=== PATIENT | male | born 1960 | race Caucasian/White ===

== ENCOUNTER 2019-03-12 22:00 | Emergency (ER) | payer OTHER ==
[2019-03-12 22:12] VITALS: BP 145/83; PULSE 64; RESP 18; TEMP 97.9
[2019-03-12] MEDS ORDERED: HYDROmorphone 1 MG/ML 1 ML SYRINGE IVP STA (22:17)
[2019-03-12] MEDS ORDERED: SODIUM CHLORIDE 0.9% 1,000 ML IV STA (22:17)
[2019-03-12] MEDS ORDERED: ONDANSETRON 4 MG/2 ML VIAL IVP STA (22:20)
[2019-03-12 22:53] LABS: Basophils # (A) 0.1 k/uL (0-0.2); Basophils % (A) 1 %; Eosinophils # (A) 0.2 k/uL (0-0.7); Eosinophils % (A) 3 %; HCT 46.6 % (39.0-53.0); HGB 16.1 gm/dL (13.0-17.5); Lymphocytes # (A) 1.1 k/uL (1.0-4.8); Lymphocytes % (A) 13 %; MCH 32.6 pg (25.0-35.0); MCHC 34.5 g/dL (31.0-37.0); MCV 94.3 fL (80.0-100.0); Mean Platelet Volume 6.1; Monocytes # (A) 0.4 k/uL (0-1.0); Monocytes % (A) 5 %; Neutrophils # (A) 6.1 k/uL (1.3-7.7); Neutrophils % (A) 76 %; Platelet Count 265 k/uL (150-450); RBC 4.94 m/uL (4.30-5.90); RDW 12.6 % (11.5-15.5); WBC 8.1 k/uL (3.8-10.6)
[2019-03-12 23:00] LABS: Total Bilirubin 0.8 mg/dL (0.2-1.3); Total Protein 7.1 g/dL (6.3-8.2)
[2019-03-12 23:01] LABS: Potassium 4.6 mmol/L (3.5-5.1)
--- NOTE | 2019-03-12 23:09 | CT ---
EXAMINATION TYPE: CT abdomen pelvis wo con DATE OF EXAM: 03/12/2019 COMPARISON: None HISTORY: right flank pain CT DLP: 1288 mGycm Automated exposure control for dose reduction was used. TECHNIQUE: Helical acquisition of images was performed from the lung bases through the pelvis. FINDINGS: There is mild subsegmental atelectasis at the left lung base. Heart is top normal in size. There is n o pleural effusion. There is no pericardial effusion. Liver is intact. Gallbladder appears normal. Bile ducts are not dilated. Stomach appears normal. Ther e is tiny calcified splenic granuloma. There is no evidence of pancreatic mass. Pancreas appears norm al. There are left side multiple renal parapelvic cysts. Left ureter is not dilated. There is fat stranding around the right kidney with hydronephrosis. There is no significant dilation of the right ureter but there is a 3 mm calculus in the distal right ureter on image 138. Bladder dis tends smoothly. There is prostatic calcification. There is no inguinal hernia. There is no free fluid in the pelvis. Appendix appears normal. There is no mesenteric edema. There is no ascites or free air. There is no sign of a bowel obstruction. Lumbar spine is intact. Bony pelvis appears intact. There is a right hip nailing.. IMPRESSION: THERE IS RIGHT-SIDED HYDRONEPHROSIS AND OBSTRUCTING SMALL CALCULUS DISTAL RIGHT URETER. LEFT RENAL PARAPELVIC CYSTS. NORMAL APPENDIX.
[2019-03-12] MEDS ORDERED: TAMSULOSIN 0.4 MG CAP.ER.24H PO STA (23:49)
[2019-03-12 23:50] LABS: Appearance,Urine Clear (Clear); Bilirubin,Urine Negative (Negative); Blood,Urine Moderate (Negative); Budding Yeast,Urine Occasional /hpf; Color,Urine Yellow; Glucose,Urine (UA) Negative (Negative); Ketones,Urine Trace (Negative); Leukocyte Esterase,Urine Negative (Negative); Mucus,Urine Few /hpf; Nitrite,Urine Negative (Negative); PH, Urine 6.5 (5.0-8.0); Protein,Urine Trace (Negative); RBC,Urine 172 /hpf (0-5); Specific Gravity,Urine 1.011 (1.001-1.035); Urobilinogen,Urine <2.0 mg/dL (<2.0); WBC,Urine 2 /hpf (0-5)
--- NOTE | 2019-03-12 23:56 | ED ---
General Adult HPI - General Chief complaint: Abdominal Pain Stated complaint: Kidney stones Time Seen by Provider: 03/12/19 22:13 Source: patient, RN notes reviewed, old records reviewed Mode of arrival: ambulatory Limitations: no limitations - History of Present Illness Initial comments: 58-year-old male patient presents in ED wit [facility] complaint of right lower flank pain. Patient reports a history of kidney stones. Reports that feels identical to kidney stones in the past. Denies any other complaints. Reports that this pain began approximately 4 PM. Reports some nausea without emesis. Systemic: Pt denies fatigue, fever/chills, rash. Pt denies weakness, night sweats, weight loss. Neuro: Pt denies headache, visual disturbances, syncope or pre-syncope. HEENT: Pt denies ocular discharge or irritation, otalgia, rhinorrhea, pharyngitis or notable lymphadenopathy. Cardiopulmonary: Pt denies chest pain, SOB, heart palpitations, dyspnea on ex ertion. Abdominal/GI: Pt denies abdominal pain, n/v/d. : Pt denies dysuria, burning w/ urination, frequency/urgency. Denies new onset urinary or bowel incontinence. MSK: Pt denies myalgia, loss of strength or function in extremities. Neuro: Pt denies new onset weakness, paresthesias. - Related Data Previous Rx's Medication Instructions Recorded Tamsulosin [Flomax] 0.4 mg PO DAILY #10 cap 03/12/19 Allergies Allergy/AdvReac Type Severity Reaction Status Date / Time No Known Allergies Allergy Verified 03/12/19 22:40 Review of Systems ROS Statement: Those systems with pertinent positive or pertinent negative responses have been documented in the HPI. ROS Other: All systems not noted in ROS Statement are negative. Past Medical History Additional Past Medical History / Comment(s): kidney stones History of Any Multi-Drug Resistant Organisms: None Reported Past Surgical History: Orthopedic Surgery Past Psychological History: No Psychological Hx Reported Smoking Status: Never smoker Past Alcohol Use History: None Reported Past Drug Use History: None Reported General Exam - General Exam Comments Initial Comments: Constitutional: NAD, AOX3, Pt has pleasant affect. HEENT: NC/AT, trachea midline, neck supple, no lymphadenopathy. Posterior pharynx non erythematous, without exudates. External ears appear normal, without discharge. Mucous membranes moist. Eyes PERRLA, EOM intact. There is no scleral icterus. No pallor noted. Cardiopulmonary: RRR, no murmurs, rubs or gallops, no JVD noted. Lungs CTAB in anterior and posterior breaux. No peripheral edema. Abdominal exam: Abdomen soft and non-distended. Abdomen non-tender to palpation in all 4 quadrants. CVA tenderness negative. Bowel sounds active in LLQ. No hepatosplenomegaly. No ecchymosis Neuro: CN II-XII grossly intact. No nuchal rigidity. No raccon eyes, no valenzuela sign, no hemotympanum. No cervical spinal tenderness. MSK: No posterior calf tenderness bilaterally, homans sign negative bilaterally. Posterior tibialis and radial pulse +2 bilaterally. Sensation intact in upper and lower extremities. Full active ROM in upper and lower extremities, 5/5 stregnth. Limitations: no limitations Course Vital Signs 03/12/19 22:09 Temperature 97.9 F Pulse Rate 64 Respiratory 18 Rate Blood Pressure 145/83 O2 Sat by Pulse 96 Oximetry Medical Decision Making - Medical Decision Making 58-year-old male patient presents to ED chief complaint of right flank pain feels similar to kidney stones in the past. Patient will signs are stable, afebrile. Physical exam did not display acute pathology. After resolution patient pain medication was ordered. Patient reports though that the pain resolved spontaneously. Feels like he passed a kidney stone. CT abdomen and pelvis without contrast displayed right-sided hydronephrosis and obstructing small calculus distal right ureter. EDC CMP was non-impressive with exception of mild elevated lipase. UA displayed blood. Patient denies to feel much improved. Will be discharged with Flomax, urology follow-up and return precautions. Case discussed with Dr. Cabrera. - Lab Data Result diagrams: 03/12/19 22:41 03/12/19 22:41 Lab Results 03/12/19 03/12/19 03/12/19 Range/Units 22:41 22:41 22:41 WBC 8.1 (3.8-10.6) k/uL RBC 4.94 (4.30-5.90) m/uL Hgb 16.1 (13.0-17.5) gm/dL Hct 46.6 (39.0-53.0) % MCV 94.3 (80.0-100.0) fL MCH 32.6 (25.0-35.0) pg MCHC 34.5 (31.0-37.0) g/dL RDW 12.6 (11.5-15.5) % Plt Count 265 (150-450) k/uL Neutrophils % 76 % Lymphocytes % 13 % Monocytes % 5 % Eosinophils % 3 % Basophils % 1 % Neutrophils # 6.1 (1.3-7.7) k/uL Lymphocytes # 1.1 (1.0-4.8) k/uL Monocytes # 0.4 (0-1.0) k/uL Eosinophils # 0.2 (0-0.7) k/uL Basophils # 0.1 (0-0.2) k/uL Sodium 139 (137-145) mmol/L Potassium 4.6 (3.5-5.1) mmol/L Chloride 108 H (98-107) mmol/L Carbon Dioxide 24 (22-30) mmol/L Anion Gap 7 mmol/L BUN 24 H (9-20) mg/dL Creatinine 1.21 (0.66-1.25) mg/dL Est GFR (CKD-EPI)AfAm 77 (>60 ml/min/1.73 sqM) Est GFR (CKD-EPI)NonAf 66 (>60 ml/min/1.73 sqM) Glucose 136 H (74-99) mg/dL Plasma Lactic Acid Storm 1.4 (0.7-2.0) mmol/L Calcium 9.0 (8.4-10.2) mg/dL Total Bilirubin 0.8 (0.2-1.3) mg/dL AST 42 (17-59) U/L ALT 41 (21-72) U/L Alkaline Phosphatase 74 (38-126) U/L Total Protein 7.1 (6.3-8.2) g/dL Albumin 4.0 (3.5-5.0) g/dL Lipase 642 H (23-300) U/L Disposition Clinical Impression: Ureteral calculi Disposition: HOME SELF-CARE Condition: Stable Instructions (If sedation given, give patient instructions): Kidney Stones (ED) Additional Instructions: Patient to adhere to previously discussed treatment plan and will take medication(s) as directed. Patient to follow up with PCP in 1-2 days. Patient to return to ED if symptoms do not improve. Have Lipase redrawn by primary care provider. Follow up with urologist tomorrow. Take medication as directed. Return to ER if condition worsens. Prescriptions: Tamsulosin [Flomax] 0.4 mg PO DAILY #10 cap Is patient prescribed a controlled substance at d/c from ED?: No Referrals: Jose Jacinto DO [Primary Care Provider] - 1-2 days Jose Velazquez MD [STAFF PHYSICIAN] - 1-2 days
[2019-03-13] MEDS ORDERED: ACET/COD 300 MG/30 MG STARTER PACK 6 TAB BTL PO STA (00:01)
[2019-03-13] MEDS ORDERED: ONDANSETRON 4 MG ODT STARTER PACK 2 TAB BTL PO STA (00:01)
== END 2019-03-13 00:14 | disposition home or self-care (01) ==
LOC: EC 22:00
DX: N13.2 Hydronephrosis with renal and ureteral calculous obstruction (principal); R74.8 Abnormal levels of other serum enzymes; Z53.20 Procedure and treatment not carried out because of patient's decision for unspecified reasons
CPT/HCPCS: 36415; 80053; 83605; 83690; 85025; 81001; 74176; 99284; 96360; S0119

== ENCOUNTER 2019-03-24 12:58 | Emergency (ER) | payer OTHER ==
[2019-03-24 13:17] VITALS: RESP 18
[2019-03-24] MEDS ORDERED: KETOROLAC 30 MG/ML 1 ML VIAL IVP STA (13:43)
[2019-03-24] MEDS ORDERED: SODIUM CHLORIDE 0.9% 1,000 ML IV STA (13:43)
[2019-03-24] MEDS ORDERED: ONDANSETRON 4 MG/2 ML VIAL IVP STA (13:43)
[2019-03-24 13:59] LABS: Basophils # (A) 0.2 k/uL (0-0.2); Basophils % (A) 2 %; Eosinophils # (A) 0.3 k/uL (0-0.7); Eosinophils % (A) 3 %; HCT 50.5 % (39.0-53.0); HGB 17.1 gm/dL (13.0-17.5); Lymphocytes # (A) 1.3 k/uL (1.0-4.8); Lymphocytes % (A) 13 %; MCH 32.8 pg (25.0-35.0); MCHC 33.9 g/dL (31.0-37.0); MCV 96.7 fL (80.0-100.0); Mean Platelet Volume 6.8; Monocytes # (A) 0.7 k/uL (0-1.0); Monocytes % (A) 7 %; Neutrophils # (A) 7.2 k/uL (1.3-7.7); Neutrophils % (A) 74 %; Platelet Count 265 k/uL (150-450); RBC 5.23 m/uL (4.30-5.90); RDW 12.6 % (11.5-15.5); WBC 9.6 k/uL (3.8-10.6)
--- NOTE | 2019-03-24 14:03 | XR ---
EXAMINATION TYPE: XR KUB DATE OF EXAM: 03/24/2019 COMPARISON: NONE HISTORY: Right-sided flank pain TECHNIQUE: One view abdominal series FINDINGS: The osseous structures are intact. The bowel gas pattern is nonspecific. Linear changes at the left lung base. Hypertrophic changes spine. Postsurgical change right hip. No suspicious calcifications. IMPRESSION: 1. Nonspecific abdomen with no obstruction. 2. Left basilar atelectasis.
[2019-03-24 14:08] LABS: Albumin 4.3 g/dL (3.5-5.0); Calcium 9.2 mg/dL (8.4-10.2); Total Bilirubin 0.7 mg/dL (0.2-1.3); Total Protein 7.8 g/dL (6.3-8.2)
--- NOTE | 2019-03-24 15:03 | ED ---
Male Urogenital HPI - General Chief complaint: Urogenital Stated complaint: kidney stone Time Seen by Provider: 03/24/19 13:25 Source: patient Mode of arrival: ambulatory Limitations: no limitations - History of Present Illness Initial comments: Patient is a 58-year-old male presenting to the emergency Department with complaints of an acute onset right flank pain. Patient states his pain started approximately 2 hours prior to arrival. Patient states he was in the ER almost 2 weeks ago for same complaint and was diagnosed with a right kidney stone. Patient states he felt improvement and has not had any symptoms since. Patient states he did follow up with his PCP regarding an elevated lipase level. Patient had labs redrawn however has not heard back from his PCP regarding those labs. Patient denies any fever, chills, other abdominal pain other than the right sided pain. Patient admits to nausea however no vomiting. Patient has no other complaints today. Upon arrival to the ER, vital signs are stable. - Related Data Previous Rx's Medication Instructions Recorded Tamsulosin [Flomax] 0.4 mg PO DAILY #10 cap 03/12/19 Allergies Allergy/AdvReac Type Severity Reaction Status Date / Time No Known Allergies Allergy Verified 03/24/19 13:17 Review of Systems ROS Statement: Those systems with pertinent positive or pertinent negative responses have been documented in the HPI. ROS Other: All systems not noted in ROS Statement are negative. Past Medical History Additional Past Medical History / Comment(s): kidney stones History of Any Multi-Drug Resistant Organisms: None Reported Past Surgical History: Orthopedic Surgery Past Psychological History: No Psychological Hx Reported Smoking Status: Never smoker Past Alcohol Use History: None Reported Past Drug Use History: None Reported General Exam - General Exam Comments Initial Comments: GENERAL: Well-appearing, well-nourished, in mild distress secondary to right flank pain. HEAD: Atraumatic, normocephalic. EYES: Pupils equal round and reactive to light, extraocular movements intact, sclera anicteric, conjunctiva are normal. ENT: TMs normal, nares patent, oropharynx clear without exudates. Moist mucous membranes. NECK: Normal range of motion, supple without lymphadenopathy or JVD. LUNGS: Breath sounds clear to auscultation bilaterally and equal. No wheezes rales or rhonchi. HEART: Regular rate and rhythm without murmurs, rubs or gallops. ABDOMEN: Right side tenderness as well as right flank pain. No left-sided abdominal pain. Soft, normoactive bowel sounds. No guarding, no rebound. No masses appreciated. : Deferred EXTREMITIES: Normal range of motion, no pitting or edema. No clubbing or cyanosis. NEUROLOGICAL: Cranial nerves II through XII grossly intact. Normal speech, normal gait. PSYCH: Normal mood, normal affect. SKIN: Warm, Dry, normal turgor, no rashes or lesions noted. Limitations: no limitations Course Vital Signs 03/24/19 03/24/19 13:13 16:30 Temperature 97.2 F L 98.0 F Pulse Rate 80 63 Respiratory 18 18 Rate Blood Pressure 133/81 127/87 O2 Sat by Pulse 99 97 Oximetry Medical Decision Making - Medical Decision Making Patient is a 58-year-old male presenting of right-sided flank pain that certain suddenly approximately 2-3 hours prior to arrival. Patient was in the ER 2 weeks ago for right-sided kidney stone. Patient states the pain feels similar to that. Patient denies fever, chills. Vital signs are stable. Exam reveals right sided abdominal and flank pain. KUB shows no acute abnormalities. Lab work shows a slightly increase in creatinine level from 2 weeks ago from 1.2 to 1.53. Lipase level also increased from 642 to 884. US of the gallbladder was obtained and shows no gallstones, no dilated ducts, there is mild right-sided hydronephrosis that is unchanged compared to CT that was done 2 weeks ago. Patient was given fluids and Toradol and he reports improvement in symptoms. Patient states he is pain-free at this time. Patient is stable for discharge at this time. Patient will continue to take his Flomax and Motrin as needed for pain relief. Patient will continue to follow-up with his PCP regarding his elevated lipase levels. Return parameters were discussed with the patient he verbalizes understanding. Case discussed with Dr. Ramos. - Lab Data Result diagrams: 03/24/19 13:40 03/24/19 13:40 Lab Results 03/24/19 03/24/19 03/24/19 Range/Units 13:40 13:40 14:45 WBC 9.6 (3.8-10.6) k/uL RBC 5.23 (4.30-5.90) m/uL Hgb 17.1 (13.0-17.5) gm/dL Hct 50.5 (39.0-53.0) % MCV 96.7 (80.0-100.0) fL MCH 32.8 (25.0-35.0) pg MCHC 33.9 (31.0-37.0) g/dL RDW 12.6 (11.5-15.5) % Plt Count 265 (150-450) k/uL Neutrophils % 74 % Lymphocytes % 13 % Monocytes % 7 % Eosinophils % 3 % Basophils % 2 % Neutrophils # 7.2 (1.3-7.7) k/uL Lymphocytes # 1.3 (1.0-4.8) k/uL Monocytes # 0.7 (0-1.0) k/uL Eosinophils # 0.3 (0-0.7) k/uL Basophils # 0.2 (0-0.2) k/uL Sodium 142 (137-145) mmol/L Potassium 4.0 (3.5-5.1) mmol/L Chloride 106 (98-107) mmol/L Carbon Dioxide 28 (22-30) mmol/L Anion Gap 8 mmol/L BUN 26 H (9-20) mg/dL Creatinine 1.53 H (0.66-1.25) mg/dL Est GFR (CKD-EPI)AfAm 58 (>60 ml/min/1.73 sqM) Est GFR (CKD-EPI)NonAf 50 (>60 ml/min/1.73 sqM) Glucose 122 H (74-99) mg/dL Calcium 9.2 (8.4-10.2) mg/dL Total Bilirubin 0.7 (0.2-1.3) mg/dL AST 35 (17-59) U/L ALT 26 (21-72) U/L Alkaline Phosphatase 87 (38-126) U/L Total Protein 7.8 (6.3-8.2) g/dL Albumin 4.3 (3.5-5.0) g/dL Amylase 191 H (30-110) U/L Lipase 884 H (23-300) U/L Urine Color Yellow Urine Appearance Clear (Clear) Urine pH 6.5 (5.0-8.0) Ur Specific [place] 1.017 (1.001-1.035) Urine Protein Negative (Negative) Urine Glucose (UA) Negative (Negative) Urine Ketones Negative (Negative) Urine Blood Negative (Negative) Urine Nitrite Negative (Negative) Urine Bilirubin Negative (Negative) Urine Urobilinogen <2.0 (<2.0) mg/dL Ur Leukocyte Esterase Negative (Negative) Disposition Clinical Impression: Right kidney stone, Elevated lipase Disposition: HOME SELF-CARE Condition: Stable Instructions (If sedation given, give patient instructions): Kidney Stones (ED) Additional Instructions: Please return to the Emergency Department if symptoms worsen or any other concerns. Continue with Flomax as discussed. Follow up with PCP in 1 to 3 days regarding elevated lipase levels. Is patient prescribed a controlled substance at d/c from ED?: No Referrals: Jose Jacinto DO [Primary Care Provider] - 1-2 days
[2019-03-24 15:06] LABS: Appearance,Urine Clear (Clear); Bilirubin,Urine Negative (Negative); Blood,Urine Negative (Negative); Color,Urine Yellow; Glucose,Urine (UA) Negative (Negative); Ketones,Urine Negative (Negative); Leukocyte Esterase,Urine Negative (Negative); Nitrite,Urine Negative (Negative); PH, Urine 6.5 (5.0-8.0); Protein,Urine Negative (Negative); Specific Gravity,Urine 1.017 (1.001-1.035); Urobilinogen,Urine <2.0 mg/dL (<2.0)
--- NOTE | 2019-03-24 15:58 | US ---
EXAMINATION TYPE: US gallbladder DATE OF EXAM: 03/24/2019 COMPARISON: NONE CLINICAL HISTORY: r flank pain. EXAM MEASUREMENTS: Liver Length: 14.2 cm Gallbladder Wall: 0.4 cm CBD: 0.2 cm Right Kidney: 12.0 x 6.4 x 5.8 cm Severe overlying bowel gas limiting study. Pancreas: Obscured by bowel gas Liver: limited views appears wnl as seen Gallbladder: very limited visualization due to overlying bowel gas, wall may be thickened Evidence for sonographic Talbot's sign: no CBD: not well seen Right Kidney: mild hydro IMPRESSION: Mild gallbladder wall thickening. No gallstones seen. No dilated ducts. No focal liver de fect. There is mild right-sided hydronephrosis unchanged compared to CT scan of 03/12/2019.
[2019-03-24 16:31] VITALS: BP 127/87; PULSE 63; TEMP 98
== END 2019-03-24 16:31 | disposition home or self-care (01) ==
LOC: EC 12:58
DX: N13.2 Hydronephrosis with renal and ureteral calculous obstruction (principal); R74.8 Abnormal levels of other serum enzymes
CPT/HCPCS: 36415; 80053; 82150; 83690; 85025; 81003; 74018; 76705; 99285; 96374; 96375; 96361; J2405; J1885

== ENCOUNTER 2020-07-01 09:10 | Observation (INO) | payer OTHER ==
[2020-07-01] MEDS ORDERED: HYDROmorphone 0.5 MG/0.5 ML SYRINGE IVP STA (09:50)
--- NOTE | 2020-07-01 09:52 | XR ---
EXAMINATION TYPE: XR tibia fibula 2 views LT, XR ankle limited 2 views LT DATE OF EXAM: 07/01/2020 Comparison: None Clinical History: 59-year-old male with pain after fall Findings: Tibia/fibula: No fracture of the more proximal to mid tibia or fibula. Knee articulation grossly intact. However, there is an oblique fracture of the distal tibial shaft with 8 mm of lateral displacement. Additional long oblique fracture of the distal fibular shaft with 1.1 cm of posterior displacement. Ankle: The ankle mortise otherwise appears intact. Small plantar heel spur. Talar dome is intact. Some mild dorsal degenerative spurring at the talonavicular joint. Impression (tibia/fibula and ankle): 1. Oblique fracture distal tibial shaft with 8 mm of lateral displacement. 2. Additional long oblique fracture of the distal fibular shaft with 1.1 cm of posterior displacement .
[2020-07-01] MEDS ORDERED: NALOXONE 0.4 MG/ML 1 ML VIAL IV PRN ×2 (10:03→19:52)
--- NOTE | 2020-07-01 10:06 | ED ---
Fall HPI - General Chief Complaint: Fall Stated Complaint: fall, lt ankle injury. Time Seen by Provider: 07/01/20 09:13 Source: patient Mode of arrival: EMS - History of Present Illness Initial Comments: 59-year-old male presents with chief complaint of left lower leg pain. Patient states that he twisted his leg when he slipped on ice taking the garbage out this morning just prior to arrival. Patient denies any knee pain hip pain back pain denies any injury to head or neck. Patient states pain is localized to the leg. Patient denies any abdominal pain nausea vomiting vision changes. He denies any loss of sensation or noted pallor coolness of extremity. Patient states he called the mask cannot walk around the emergency department after putting a temporary splint on for transportation. Pulses noted to be normal on scene per EMS. - Related Data Home Medications Medication Instructions Recorded Confirmed No Known Home Medications 07/01/20 07/01/20 Allergies Allergy/AdvReac Type Severity Reaction Status Date / Time No Known Allergies Allergy Verified 07/01/20 10:26 Review of Systems ROS Statement: Those systems with pertinent positive or pertinent negative responses have been documented in the HPI. ROS Other: All systems not noted in ROS Statement are negative. Past Medical History Additional Past Medical History / Comment(s): kidney stones History of Any Multi-Drug Resistant Organisms: None Reported Past Surgical History: Orthopedic Surgery Past Psychological History: No Psychological Hx Reported Smoking Status: Never smoker Past Alcohol Use History: None Reported Past Drug Use History: None Reported General Exam - General Exam Comments Initial Comments: General: The patient is awake and alert, in no distress Eye: +3 mm pupils are equal, round and reactive to light, extra-ocular movements are intact. No nystagmus. There is normal conjunctiva bilaterally. No signs of icterus. Ears, nose, mouth and throat: There are moist mucous membranes and no oral lesions. Neck: The neck is supple, there is no tenderness or JVD. Cardiovascular: There is a regular rate and rhythm. No murmur, rub or gallop is appreciated. Respiratory: Lungs are clear to auscultation, respirations are non-labored, breath sounds are equal. No wheezes, stridor, rales, or rhonchi. Gastrointestinal: Soft, non-distended, non-tender abdomen without masses or organomegaly noted. There is no rebound or guarding present. Musculoskeletal: Some deformit of soft tisseu appreciated of the distal medial leg, no openings in skin. ankle mortise appears intact. No proximal tibia/fibula pain to palpation. can wiggle toes without difficulty and full strength. no foot drop. Sensation intact proximal and distal to injury sitre. Radial and DP pulses equal bilaterally 2+. Neurological: A&O x 3. CN II-XII intact grossly, There are no obvious motor or sensory deficits. Coordination appears grossly intact. Speech is normal. Skin: Skin is warm and dry and no rashes or lesions are noted. Psychiatric: Cooperative, appropriate mood & affect, normal judgment. Course Vital Signs 07/01/20 07/01/20 09:12 09:58 Temperature 99.2 F Pulse Rate 77 76 Respiratory 16 16 Rate Blood Pressure 145/101 144/96 O2 Sat by Pulse 97 95 Oximetry Medical Decision Making - Medical Decision Making 59yo presenting for fall. distal shaft tibia fracture. displaced. patient vascular intact. Compartments are soft and compressible. No foot drop. Orthopedic on-call physician shipping and receiving assistant, Spike Bundy was contacted who recommend splinting in posterior mold splint with stirrups and have medicine consulted for surgical clearance with tenative plans to take patient to OR today pending clearance. Consulted Dr. Jose Jacinto, he states he cannt make it to the hospital soon so he would have city call cover the medical clearance. [facility] were consulted who stated they would be happy to see the patient. Patient admitted agreeable to care pland/surgical plan. Disposition Clinical Impression: Fracture, tibia, shaft, Left leg pain Disposition: ADMITTED IP TO THIS [facility] Condition: Stable Is patient prescribed a controlled substance at d/c from ED?: No Referrals: Jose Jacinto DO [Primary Care Provider] - 1-2 days Time of Disposition: 10:06 Decision to Admit Reason: Admit from EC Decision Date: 07/01/20 Decision Time: 10:06
[2020-07-01 11:13] LABS: Basophils # (A) 0.1 k/uL (0-0.2); Basophils % (A) 1 %; Eosinophils # (A) 0.2 k/uL (0-0.7); Eosinophils % (A) 2 %; HCT 47.9 % (39.0-53.0); HGB 16.1 gm/dL (13.0-17.5); Lymphocytes # (A) 1.1 k/uL (1.0-4.8); Lymphocytes % (A) 11 %; MCH 31.2 pg (25.0-35.0); MCHC 33.6 g/dL (31.0-37.0); MCV 93.1 fL (80.0-100.0); Mean Platelet Volume 7.2; Monocytes # (A) 0.4 k/uL (0-1.0); Monocytes % (A) 5 %; Neutrophils # (A) 7.6 k/uL (1.3-7.7); Neutrophils % (A) 81 %; Platelet Count 248 k/uL (150-450); RBC 5.15 m/uL (4.30-5.90); RDW 13.2 % (11.5-15.5); WBC 9.4 k/uL (3.8-10.6)
[2020-07-01 11:22] LABS: African American GFR (CKD) >90 (>60 ml/min/1.73 sqM); Anion Gap 7 mmol/L; Blood Urea Nitrogen 22 mg/dL (9-20); Calcium 8.7 mg/dL (8.4-10.2); Carbon Dioxide 25 mmol/L (22-30); Chloride 105 mmol/L (98-107); Glucose 129 mg/dL (74-99); Non-African American GFR(CKD) 88 (>60 ml/min/1.73 sqM); Sodium 137 mmol/L (137-145)
--- NOTE | 2020-07-01 11:43 | P.CONS ---
History of Present Illness - Reason for Consult Consult date: 07/01/20 Medical clearance - Chief Complaint Left lower extremity pain - History of Present Illness This is a 60-year-old male with no significant past medical history who presented to the emergency room after he twisted his ankle this morning and slipped on ice taking garbage outside of his house. Patient was evaluated in the ER and was found to have a left distal tibial fracture. He was seen by orth opedic and plan for all are in the afternoon. I was asked to see him for medical clearance. Patient is awake and alert. Other than some pain in his ankle he denies any other complaints. He is not known to have any medical history. He denies hypertension, diabetes, or chronic kidney disease. He denies any cardiac history. He is fairly active usually and is able to climb one flight of stairs without shortness of breath or chest pain. Review of Systems Review of system: 14 points review of systems were obtained and were negative except to what were mentioned in the HPI. Past Medical History Additional Past Medical History / Comment(s): kidney stones, R hip/R wrist fractures with surgery. History of Any Multi-Drug Resistant Organisms: None Reported Past Surgical History: Orthopedic Surgery Additional Past Surgical History / Comment(s): R hip closed reduction/pinning, R wrist closed reduction, colonoscopy. Past Anesthesia/Blood Transfusion Reactions: No Reported Reaction Past Psychological History: No Psychological Hx Reported Additional Psychological History / Comment(s): Pt resides with his spouse. He is independent. Smoking Status: Never smoker Past Alcohol Use History: Occasional Past Drug Use History: None Reported - Past Family History Father Family Medical History: Cancer Additional Family Medical History / Comment(s): Father was a smoker. He of lung cancer. Mother Family Medical History: Cancer Additional Family Medical History / Comment(s): Mother was a smoker. She of lung cancer. Medications and Allergies Home Medications Medication Instructions Recorded Confirmed Type No Known Home Medications 07/01/20 07/01/20 History Allergies Allergy/AdvReac Type Severity Reaction Status Date / Time No Known Allergies Allergy Verified 07/01/20 10:26 Physical Exam Vitals: Vital Signs Temp Pulse Resp BP Pulse Ox 07/01/20 11:30 98 F 79 18 139/93 07/01/20 10:40 98 F 69 16 148/95 96 07/01/20 09:58 76 16 144/96 95 07/01/20 09:12 99.2 F 77 16 145/101 97 Intake and Output 06/30/20 07/01/20 07/01/20 22:59 06:59 14:59 Other: Weight 113.398 kg General: The patient is awake and alert, in no distress Eye: there is normal conjunctiva bilaterally. Neck: The neck is supple, there is no JVD. Cardiovascular: Normal S1-S2, no S3-S4, no murmurs. Respiratory: Lungs clear to auscultation bilaterally Gastrointestinal: Abdomen is soft, nontender Musculoskeletal: There is no pedal edema on the right Neurological:. Speech is normal. Skin: Skin is warm and dry Results CBC & Chem 7: 07/01/20 10:54 07/01/20 10:54 Labs: Abnormal Lab Results - Last 24 Hours (Table) 07/01/20 Range/Units 10:54 BUN 22 H (9-20) mg/dL Glucose 129 H (74-99) mg/dL Assessment and Plan Assessment: 1. Medical clearance, patient is at an acceptable risk to proceed with orthopedic surgery of left distal tibial fracture. His modified RCRI score is 0. 2. Left distal tibial fracture, seen by orthopedic. Scheduled for OR this afternoon. 3. DVT prophylaxis with subcu heparin Today, I reviewed his lab work results. I also reviewed twelve-lead EKG showed normal sinus rhythm. I would continue to follow up on the patient closely with you. Thank you very much for the consultation.
--- NOTE | 2020-07-01 12:12 | P.HPOR ---
<Spike Bundy - Last Filed: 07/01/20 12:12> History of Present Illness H&P Date: 07/01/20 This patient is a 59-year-old male who is otherwise healthy that presented to [facility] emergency department this morning via EMS with complaints of left lower leg pain following a fall at home. Patient states he was walking out of his driveway and slipped on a patch of ice. He states he experienced immediate pain in the left lower leg, as well as deformity. He is able to crawl into his garage and call his . His called his neighbor's for help, who called an ambulance. The patient was transported to [facility] emergency department. X-rays in the emergency department revealed a displaced left tibia and fibula fracture. The patient was admitted under the care of Dr. Lobo for surgical intervention, as well as a consult placed to internal medicine for surgical clearance. At the time of my exam, the patient is complaining of isolated left lower leg pain. He states he did not hit his head when he fell. He states he did not experience any additional injuries. He denies numbness or tingling of the left lower extremity. He works midnights and last ate around 2am. He denies chest pain, shortness of breath, nausea, vomiting, fevers, chills. He has no additional complaints at this time. Vital signs stable. Dr. Lobo also present. Past Medical History Additional Past Medical History / Comment(s): kidney stones, R hip/R wrist fractures with surgery. History of Any Multi-Drug Resistant Organisms: None Reported Past Surgical History: Orthopedic Surgery Additional Past Surgical History / Comment(s): R hip closed reduction/pinning, R wrist closed reduction, colonoscopy. Past Anesthesia/Blood Transfusion Reactions: No Reported Reaction Past Psychological History: No Psychological Hx Reported Additional Psychological History / Comment(s): Pt resides with his spouse. He is independent. Smoking Status: Never smoker Past Alcohol Use History: Occasional Past Drug Use History: None Reported - Past Family History Father Family Medical History: Cancer Additional Family Medical History / Comment(s): Father was a smoker. He of lung cancer. Mother Family Medical History: Cancer Additional Family Medical History / Comment(s): Mother was a smoker. She of lung cancer. Medications and Allergies Home Medications Medication Instructions Recorded Confirmed Type No Known Home Medications 07/01/20 07/01/20 History Allergies Allergy/AdvReac Type Severity Reaction Status Date / Time No Known Allergies Allergy Verified 07/01/20 15:13 Physical Examination On examination, the patient is lying in bed in no apparent distress. His is bedside. He is alert going to 3. His head appears normocephalic and atraumatic. His breathing appears unlabored. On inspection of his bilateral upper extremities, there are no obvious deformities or signs of trauma. On inspection of the right lower extremity, there are no obvious deformities or signs of trauma. On inspection of the left lower extremity, there are no open wounds or lacerations. The skin is intact. There is severe pain with palpation of the distal tibia and fibula. Non-tender to palpation of the left hip, thigh, knee, ankle, foot. Patient is able to move the toes without issue or pain. There is no pain with passive range of motion of the toes. Calf is soft and compressible. The left lower extremity is warm and well perfused with brisk capillary refill of the foot and toes. The dorsalis pedis pulse is easily palpated. Motor and sensory function are intact of the left lower extremity. Results Left tibia and fibula x-rays 07/01/20: Displaced distal tibia fracture. Displaced distal fibula fracture. Ankle mortise appears stable and intact. - Labs Labs: Abnormal Lab Results - Last 24 Hours (Table) 07/01/20 Range/Units 10:54 BUN 22 H (9-20) mg/dL Glucose 129 H (74-99) mg/dL H & H 07/01/20 Range/Units 10:54 Hgb 16.1 (13.0-17.5) gm/dL Hct 47.9 (39.0-53.0) % Result Diagrams: 07/01/20 10:54 07/01/20 10:54 Assessment and Plan Assessment: Displaced distal tibia fracture Displaced distal fibula fracture Plan: - The clinical and imaging findings were discussed with the patient. The patient was discussed in detail with Dr. Lobo. Recommended surgical fixation of the patient's tibia and fibula fractures. We will plan on surgery this afternoon. Patient has been medically cleared for surgery this afternoon. - Patient was placed into a well-padded bulky Ramos splint bedside. He should remain strictly non-weight bearing on the left lower extremity. Left lower extremity should be kept elevated for swelling control. - Pain control as needed. - NPO diet. <Isabelle Lobo - Last Filed: 07/01/20 17:05> Physical Examination Osteopathic Statement: *. No significant issues noted on an osteopathic structural exam other than those noted in the History and Physical/Consult. Results - Labs Labs: Abnormal Lab Results - Last 24 Hours (Table) 07/01/20 Range/Units 10:54 BUN 22 H (9-20) mg/dL Glucose 129 H (74-99) mg/dL H & H 07/01/20 Range/Units 10:54 Hgb 16.1 (13.0-17.5) gm/dL Hct 47.9 (39.0-53.0) % Result Diagrams: 07/01/20 10:54 07/01/20 10:54 Assessment and Plan Plan: Agree wiht above. Pt seen and examinied. for IM gautam of tibia with orif distal fibula
[2020-07-01] MEDS ORDERED: HYDROcodone/APAP 5-325MG 1 EACH TAB PO PRN (13:18)
[2020-07-01] MEDS ORDERED: MORPHINE SULFATE 2 MG/ML SYRINGE IVP PRN (13:18)
[2020-07-01] MEDS ORDERED: LACTATED RINGERS 1,000 ML IV ONE ×3 (15:02→18:47)
[2020-07-01] MEDS ORDERED: ONDANSETRON 4 MG/2 ML VIAL ONE (15:30)
[2020-07-01] MEDS ORDERED: ONDANSETRON 4 MG/2 ML VIAL IVP ONE (15:31)
[2020-07-01] MEDS ORDERED: DEXAMETHASONE SOD PHOSPHATE 4 MG/ML 1 ML VIAL IVP ONE (15:31)
[2020-07-01] MEDS ORDERED: fentaNYL (PF) 50 MCG/ML 2 ML AMP IVP ONE (16:19)
[2020-07-01] MEDS ORDERED: fentaNYL (PF) 50 MCG/ML 2 ML AMP ONE (16:49)
[2020-07-01] MEDS ORDERED: LIDOCAINE 1% INJ 10MG/ML (20 ML MDV) ONE (16:49)
[2020-07-01] MEDS ORDERED: PROPOFOL 10 MG/ML 20 ML VIAL IV ONE (16:49)
[2020-07-01] MEDS ORDERED: SUCCINYLCHOLINE CHLORIDE 100 MG/5 ML SYR IV ONE (16:49)
[2020-07-01] MEDS ORDERED: ceFAZolin 1,000 MG VIAL ONE (16:49)
[2020-07-01] MEDS ORDERED: HYDROmorphone (PF) 1 MG/ML ONE (16:49)
[2020-07-01] MEDS ORDERED: MIDAZOLAM 2 MG/2 ML VIAL ONE (16:49)
[2020-07-01] MEDS ORDERED: SODIUM CHLORIDE 0.9% 100 ML with ceFAZolin 2,000 MG IV ONE ×2 (16:54)
[2020-07-01] MEDS ORDERED: ceFAZolin 1,000 MG in SODIUM CHLORIDE 0.9% 1,000 ML IRRIGATION ONE (17:34)
[2020-07-01] MEDS ORDERED: BENZOCAINE/MENTHOL LOZENG 1 EACH LOZENGE MUCOUS MEM PRN (19:52)
[2020-07-01] MEDS ORDERED: HYDROmorphone 1 MG/ML 1 ML SYRINGE IVP PRN (19:52)
[2020-07-01] MEDS ORDERED: diazePAM 5 MG TAB PO PRN (19:52)
[2020-07-01] MEDS ORDERED: HYDROmorphone 0.5 MG/0.5 ML SYRINGE IVP PRN (19:52)
[2020-07-01] MEDS ORDERED: ONDANSETRON 4 MG/2 ML VIAL IVP PRN (19:52)
--- NOTE | 2020-07-01 20:08 | P.OP ---
Date of Procedure: 07/01/20 Preoperative Diagnosis: Displaced right tibia distal shaft fracture and distal fibular comminuted fracture, acute traumatic due to a fall Neurovascularly intact Postoperative Diagnosis: Same Anesthesia: GETA Pathology: none sent Condition: stable Disposition: PACU Description of Procedure: BRIEF OPERATIVE NOTE Preoperative Diagnosis: Displaced right tibia distal shaft fracture and distal fibular comminuted fracture, acute traumatic due to a fall Neurovascularly intact Postoperative Diagnosis: Same Procedure: Open reduction internal fixation with intramedullary rodding of left tibial shaft fracture Open reduction internal fixation of left distal fibula fracture Use of fluoroscopic guidance Surgeon: Dr. Lobo Registry Rn: respiratory care assistant Anesthesia: General anesthesia Estimated blood loss: Approximately 150 mL Tourniquet time: Approximately 120 minutes Specimen: None Complications: None apparent Components implanted: [employer] intramedullary tibial nail measuring 10 x 3 60 with proximal and distal screws and a small frag one third semitubular plate with 7 screws with comminution of 3.5 cortical and 40 cancellus screws Disposition: To recovery room in good stable condition. OPERATIVE INDICATIONS The patient had an acute injury this morning when he and fell on the ice at home while taking out the garbage.. He had immediate pain and swelling in his left ankle and leg but was able to crawl back into the house. He had not had any pain or issues prior to his fall. He was evaluated and found have a displaced distal tibia shaft fracture on the left as well as a comminuted distal fibula fracture. There is no evidence of fracture at the medial malleolus. The tibial shaft fracture was grossly unstable distal fibula fracture was near the distal syndesmosis and ankle. I felt that it was necessary for him to undergo stabilization with intramedullary rodding of the tibia and open reduction internal fixation of the distal fibula to give him the best chance of fracture healing and functional improvement with the best possible outcome. I discussed the risk of the injury and alternatives and benefits of surgery in relation to his injury. I discussed the risk of bleeding risk and infection risk and need for further surgery risk of decreased loss of motion loss function malunion nonunion hardware failure nerve damage as well as, occasions with surgery were explained. I answered her questions best my ability and she elected proceed with surgical intervention. OPERATIVE SUMMARY After discussing all the risks, patient alternatives and benefits at length, the patient elected to proceed with surgical intervention, signed informed consent, and presented for their procedure. The patient was seen and examined in the preoperative holding area and the surgical site was marked at the left lower leg. The patient was given antibiotics and brought to the operating room. The patient was sedated and intubated by anesthesia in standard fashion. The patient was positioned on to the operating room table in a supine position with a pad under her right hip. We were careful to pad any bony prominences and pressure points. We were careful to maintain the patient's cervical spine and good neutral alignment and position throughout. We used C-arm machines to establish union fluoroscopic guidance in AP and lateral positions. We were able to localize the fractures appropriately. The patient was prepped and draped in a normal standard fashion. An appropriate timeout and keystone protocol performed. We were able to proceed with the surgery. The local wound area was infiltrated with local anesthetic. I first started with the dressing and the tibia fracture. A midline incision was made at the left knee over the patellar tendon. Dissection was taken down over the patellar tendon and the peritenon was split in line with its fibers. The patellar tendon was then split in line with its fibers as well. I was able get access to the anterior superior aspect of the proximal pole tibia. With this established I turned my attention to the fracture site itself. I was able place a gentle reduction technique and then I made small stab incisions in order to place a clamp across the fracture site. I was able to use a [id number] fracture clamp to get excellent reduction of the oblique spiral distal tibia shaft fracture. I was able hold that well with the clamp in good reduced position. With that held with a clamp I then returned my attention to the proximal tibia was able to start a starting hole at the superior proximal aspect of the tibia. A guidepin was placed under C-arm guidance and that I had then protecting the patellar tendon I was able establish a starting hole. As able place a guide wire a ball-tipped down the tibial shaft and across the fracture site into the distal tibia. It had excellent position with the fracture well aligned. I was then able to do sequential reaming of the tibia in half millimeter increments from a 9 up to a 12 mm reamer. The fracture remained in good position and alignment were able to protect the patellar tendon throughout. With the area appropriately reamed we measured off the guidewire and chose a 10 x 360 mm gautam. The wound is irrigated and suctioned dry. I was then able to place the gautam which was prepared with the jig over the guidewire into the shaft across the fracture site and into the distal tibia it had excellent alignment and position. The clamp holding the fracture was removed and we were able to maintain excellent alignment and position of the fracture itself. The ball- tipped guidewire was able to be removed and we seated the gautam appropriately. I was then able to use the guide jig as well as the drilling sleeves to establish drill holes at the proximal tibia 2. I was able to salvage drill holes measure and place screws were properly with excellent position and excellent bony purchase at the proximal tibia 2. At the distal tibia I used a freehand technique and made a small stab incision over the most proximal distal locking hole. Using the freehand technique I was able to drill and place a screw at the distal tibia. It was measured and placed in good alignment good position with excellent bony purchase. We're able to get excellent fixation across the fracture site and all the hardware was in good alignment and good position at the tibia. I then turned my attention to the distal fibula. An incision was made over the lateral aspect of the ankle and I dissected down to the distal fibula appropriately. The fracture was obvious and I was able to mobilize some of the fragments and elevated some of the periosteum leaving as much is intact as possible. I performed a gentle reduction techniques in order to get the fractures well aligned and use of bone clamp to get good provisional fixation. I was able to get good near-anatomic position. This was confirmed with C-arm guidance. I was then able to measure and position a one third semitubular 7 hole plate and contoured appropriately over the distal fibula and over the fracture site proximally and distally. I establish an interfragmentary screw going from anterior to posterior across fracture site and good alignment and position with good bony fixation. As able to remove the bone clamp in place the plate laterally and placed cortical screws proximally and cancellous screws distally to get excellent fixation at a near anatomic position. This was confirmed with C-arm guidance. Significant. I performed medial and lateral varus and valgus stress at the ankle after fixation was performed and there is no evidence of any widening or displacement of the syndesmosis or the ankle mortise. I do not feel we needed any further fixation. We were able to proceed with closure. The peritenon at the patellar tendon was closed with 4-0 Vicryl. Deep layers were closed with 2-0 Vicryl subcu tissues closed 2-0 Vicryl and skin around the ankle had some swelling and I closed with vanessa. The incision over the patellar tendon was closed with subcuticular 4-0 Vicryl and blue. The wound was cleaned and dried and dressed with the appropriate dressing. I placed a sugar tong and posterior mold well-padded well molded splint at the left lower leg for a bulky Ramos dressing. The tourniquet was dropped at approximate 120 minutes The drapes were broken down. The patient was gently rolled back onto their hospital bed being careful to maintain their cervical spine and good neutral alignment and position. They were woken up by anesthesia, extubated, and brought to the recovery room in good stable condition. The patient will be able to be admitted to the hospital this evening for continued management and physical therapy detraining for nonweightbearing on the left lower extremity and slight antibiotics through the IV. We'll continue to follow him closely.
[2020-07-01] MEDS: HEPARIN SODIUM,PORCINE 5,000 UNIT/ML 1 ML VIAL SQ SCH (21:26)
[2020-07-01] MEDS: SODIUM CHLORIDE 0.9% 1,000 ML IV SCH ×2 (23:56)
[2020-07-02] MEDS: SODIUM CHLORIDE 0.9% 1,000 ML IV SCH ×3 (05:53→18:00)
--- NOTE | 2020-07-02 07:01 | XR ---
Fluoroscopy History: LT TIB-FIB FX. IM CALVIN. 1min 11 sec fluoro, 5 images in [place] OR folder same date, distal tibial & fibula fracture
[2020-07-02] MEDS ORDERED: SENNOSIDES-DOCUSATE SODIUM 1 EACH TAB PO SCH (09:00)
[2020-07-02] MEDS ORDERED: PANTOPRAZOLE 40 MG/10 ML VIAL IVP SCH (09:00)
[2020-07-02] MEDS: HEPARIN SODIUM,PORCINE 5,000 UNIT/ML 1 ML VIAL SQ SCH (09:10)
[2020-07-02 09:17] LABS: Basophils # (A) 0.03 X 10*3/uL (0.00-0.10); Basophils % (A) 0.3 %; Eosinophils # (A) 0 X 10*3/uL (0.04-0.35); Eosinophils % (A) 0 %; HCT 46.2 % (39.6-50.0); HGB 15.3 g/dL (13.0-17.0); Lymphocytes # (A) 0.39 X 10*3/uL (0.90-5.00); Lymphocytes % (A) 3.4 %; MCH 31.4 pg (27.0-32.0); MCHC 33.1 g/dL (32.0-37.0); MCV 94.7 fL (80.0-97.0); Mean Platelet Volume 10.2 fL (9.5-12.2); Monocytes # (A) 0.27 X 10*3/uL (0.20-1.00); Monocytes % (A) 2.3 %; Neutrophils # (A) 10.79 X 10*3/uL (1.80-7.70); Neutrophils % (A) 93.6 %; Platelet Count 248 X 10*3/uL (140-440); RBC 4.88 X 10*6/uL (4.40-5.60); RDW 12.8 % (11.5-14.5); WBC 11.53 X 10*3/uL (4.50-10.00)
--- NOTE | 2020-07-02 09:30 | P.PN ---
Subjective Progress Note Date: 07/02/20 This is a 59-year-old gentleman status post fall, sustaining an acute traumatic displaced right tibia distal shaft fracture and distal fibular comminuted fracture, status post open reduction internal fixation with Intramedullary rodding of the left tibial shaft fracture, open reduction internal fixation of left distal fibula fracture. Tolerated procedure well. Reports did not sleep well. Moderate pain. Reports minimal flatus, mild nausea. Denies chest pain, palpitations or shortness of breath. Denies lightheadedness, dizziness or focal deficits. Patient has not yet been up with PT.VSS, intending O2 sats in the 90s on room air. Afebrile. Mildly elevated blood sugars. Objective - Vital Signs Vital signs: Vital Signs Temp 98.5 F 07/02/20 07:00 Pulse 83 07/02/20 07:00 Resp 20 07/02/20 07:00 BP 132/81 07/02/20 07:00 Pulse Ox 98 07/02/20 07:00 Intake & Output 07/01/20 07/02/20 07/02/20 18:59 06:59 18:59 Intake Total 1500 1000 Output Total 1100 Balance 1500 -100 Weight 113.398 kg Intake: IV 1500 400 Intake, IV Titration 600 Amount Sodium Chloride 0.9% 1, 600 000 ml @ 75 mls/hr IV . [id number] [facility] Rx#:[id number] Output: Urine 950 Estimated Blood Loss 150 Other: Voiding Method Urinal - Exam PHYSICAL EXAM: VITAL SIGNS: As above GENERAL: Sitting up in bed, no acute distress HEENT: Conjunctivae normal. eyes normal. Oral mucosa moist. NECK: No JVD. No thyroid enlargement. No LNs CARDIOVASCULAR: S1, S2 regular. No murmur RESPIRATION: Breath sounds diminished in the bases. No rhonchi or crackles. No bronchial breathing. ABDOMEN: Soft, nontender . No guarding. no masses palpable. No ascites, No hepatosplenomegaly.Bowel sounds heard. LEGS: Right lower extremity splint with dressing clean dry and intact. Toes warm and pink, wiggles freely. PSYCHIATRY: Alert and oriented X3, mood and affect normal. NERVOUS SYSTEM: Cranial N 2-12 grossly normal. No focal deficits. Strength and sensation grossly intact. Skin: Dry, no rash Lymphatic system. No LN neck axilla. - Labs CBC & Chem 7: 02/24/21 22:00 07/01/20 10:54 Labs: Abnormal Lab Results - Last 24 Hours (Table) 07/01/20 Range/Units 10:54 BUN 22 H (9-20) mg/dL Glucose 129 H (74-99) mg/dL Assessment and Plan Assessment: acute traumatic displaced right tibia distal shaft fracture and distal fibular comminuted fracture, status post open reduction internal fixation with In tramedullary rodding of the left tibial shaft fracture, open reduction internal fixation of left distal fibula fracture, status post fall. History of prior orthopedic surgeries, secondary to fall History of renal calculi Morbid obesity, BMI 35.9 Mild hyperglycemia, A1c ordered Plan: Continue on current medication regime ,monitoring and symptomatic treatment. Patient currently not on any home medications. Protonix added for GI prophylaxis. Anticoagulation and pain management as per primary. Aggressive pulmonary toileting with incentive spirometer reinforced. PT. NovoLog sliding scale ordered as well as A1c. Close monitoring of renal function with repeat labs ordered for a.m. Thank you Dr. Lobo for the consult. The impression and plan of care has been dictated as directed. : I performed a history and examination of this patient, discussed the same with the dictator. I agree with the dictator's note ,documented as a scribe. Any additional findings or plans will be noted.
[2020-07-02 11:54] LABS: Glucose,Whole Blood 131 mg/dL (75-99)
[2020-07-02] MEDS ORDERED: INSULIN ASPART (NovoLOG) 100 UNIT/ML VIAL SQ SCH (12:30)
[2020-07-02] MEDS: HYDROcodone/APAP 5-325MG 1 EACH TAB PO PRN ×2 (13:25→19:25)
[2020-07-02 14:26] VITALS: BP 123/72; PULSE 77; RESP 16; TEMP 98.8
--- NOTE | 2020-07-02 17:35 | P.DS ---
Providers Date of admission: 07/01/20 10:34 Attending physician: Isabelle Lobo Consults: 07/01/20 10:09 Consult Physician Routine Consulting Provider: Ariana Pineda Consult Reason/Comments: surgical clearance Do you want consulting provider notified?: Already Contacted Primary care physician: Jose Jacinto [facility] Hospital Course: The patient presented on the day of admission as per their operative note. He had fallen on the ice at home well together trash and sustained a displaced distal tibia shaft fracture and comminuted distal fibula fracture on the left. He is neurologically intact and after discussing various treatment options with him we felt the best course would be to undergo surgical intervention and stabilization. He underwent intramedullary tibial rodding and open reduction internal fixation of the distal fibula yesterday as per his operative note. He feels his leg is stable. He is having soreness over his ankle and his knee. His permits are soft. He denies any problems with breathing or chest pain. He denies any new problems. Physical Exam The incision site is clean dry and intact. There is no erythema no drainage. There is no purulence no evidence of infection. He has a bulky Ramos dressing intact. His toes are pink and warm. He has good motion in his toes. Abdomen soft and nontender. Chest has good excursion with deep inspiration and expiration. The patient has active and passive range of motion intact at the upper and lower extremities. There is no acute change in neurologic status. The splint on left lower extremity is intact. An well-padded. Hospital Course Postoperative day #1 status post intramedullary rodding of distal tibia shaft fracture and open reduction internal fixation of distal fibular fracture for his acute traumatic injury The patient has been making good progress postoperatively. They have completed the prophylactic antibiotics without any signs or symptoms of infection. The patient has been able to advance their diet, and is tolerating diet adequately. The pain was initially controlled with IV medications and is now controlled appropriately with oral medications. The patient has been able to increase their mobilization. The patient has progressed appropriately. I think they are in good stable condition for discharge today. They will be sent home with appropriate prescriptions. I answered their questions to the best of my ability in a language that they can understand and they are agreeable with the plan. They will follow up as directed in approximately 3 days or sooner if he is having problems. Patient Condition at Discharge: Good Plan - Discharge Summary Discharge Rx Participant: No New Discharge Prescriptions: New HYDROcodone/APAP 5-325MG [[place] 5-325] 1 - 2 tab PO Q6HR PRN #56 tab PRN Reason: Pain Discharge Medication List HYDROcodone/APAP 5-325MG [[place] 5-325] 1 - 2 tab PO Q6HR PRN #56 tab 07/02/20 [Rx] Follow up Appointment(s)/Referral(s): Jose Jacinto DO [Primary Care Provider] - 1-2 days [facility] [NON-STAFF] - As Needed (Supplier of wheelchair and hospital bed. ) Isabelle Lobo DO [Doctor of Osteopathic Medicine] - 3 Days Activity/Diet/Wound Care/Special Instructions: Keep site clean. Keep lower extremity splint intact Did not allow the dressing to get wet Nonweightbearing left lower extremity. Attempt to elevate left lower extremity is much as possible. May use ice over the areas. Avoid heavy or rigorous activity. No repetitive bending twisting or lifting. No overhead work. Discharge Disposition: HOME SELF-CARE
== END 2020-07-02 19:36 | disposition home or self-care (01) ==
LOC: EC 09:10 → 6NMEDSUR 10:34
PROVIDERS: ADMIT Orthopaedic Surgery Orthopaedic Surgery of the Spine; ATTEND Orthopaedic Surgery Orthopaedic Surgery of the Spine
DX: S82.232A Displaced oblique fracture of shaft of left tibia, initial encounter for closed fracture (principal); S82.432A Displaced oblique fracture of shaft of left fibula, initial encounter for closed fracture; R79.9 Abnormal finding of blood chemistry, unspecified; W00.0XXA Fall on same level due to ice and snow, initial encounter; Z87.442 Personal history of urinary calculi; Z80.1 Family history of malignant neoplasm of trachea, bronchus and lung; E66.01 Morbid (severe) obesity due to excess calories; Z68.35 Body mass index [BMI] 35.0-35.9, adult; Z20.822 Contact with and (suspected) exposure to COVID-19
CPT/HCPCS: 27758; 99285; 36415; 93005; 97162; 97166; 80048; 85025; 87635; 73590; 73600; G0378 ×2; C1713; J2250; J1644 ×2; J1100; J0690 ×3; J2405; J2001; J3010; J2270; J1170 ×2; J0330; J2704; C9113

== ENCOUNTER 2022-02-10 07:47 | Day surgery (SDC) | payer OTHER ==
[~2022-02-10 07:47] MED LIST: LACTATED RINGERS 1,000 ML IV SCH
[2022-02-10 08:10] VITALS: RESP 16; TEMP 97.3
--- NOTE | 2022-02-10 08:31 | P.GSHP ---
History of Present Illness H&P Date: 02/10/22 Chief Complaint: Screening colonoscopy This a 61-year-old male who presents today for screening colonoscopy. Patient denies a significant GI complaints. Past Medical History Past Medical History: Hyperlipidemia Additional Past Medical History / Comment(s): Hx kidney stones, R hip/R wrist fractures with surgery. History of Any Multi-Drug Resistant Organisms: None Reported Past Surgical History: Orthopedic Surgery Additional Past Surgical History / Comment(s): R hip closed /pinning, R wrist closed reduction, colonoscopy. Left leg fracture repair- metal gautam and plate in the ankle. Past Anesthesia/Blood Transfusion Reactions: No Reported Reaction Additional Past Anesthesia/Blood Transfusion Reaction / Comment(s): no blood tranfusions Smoking Status: Never smoker - Past Family History Father Family Medical History: Cancer Additional Family Medical History / Comment(s): Father was a smoker. He of lung cancer. Mother Family Medical History: Cancer Additional Family Medical History / Comment(s): Mother was a smoker. She of lung cancer. Medications and Allergies Home Medications Medication Instructions Recorded Confirmed Type Atorvastatin [Lipitor] 10 mg PO DAILY 02/08/22 02/10/22 History Allergies Allergy/AdvReac Type Severity Reaction Status Date / Time No Known Allergies Allergy Verified 02/10/22 08:02 Surgical - Exam Vital Signs Temp Pulse Resp BP Pulse Ox 97.3 F L 63 16 134/89 96 02/10/22 08:05 02/10/22 08:05 02/10/22 08:05 02/10/22 08:05 02/10/22 08:05 - General well developed, well nourished, no distress - Eyes PERRL - ENT normal pinna - Neck no masses - Respiratory normal expansion - Cardiovascular Rhythm: regular - Abdomen Abdomen: soft, non tender Assessment and Plan Assessment: We'll perform screening colonoscopy
[2022-02-10] MEDS ORDERED: PROPOFOL 10 MG/ML 20 ML VIAL IV ONE (08:40)
--- NOTE | 2022-02-10 09:03 | P.OP ---
Date of Procedure: 02/10/22 Preoperative Diagnosis: Screening colonoscopy Postoperative Diagnosis: Normal colon Procedure(s) Performed: Colonoscopy Anesthesia: MAC Surgeon: Giuseppe Calloway Pathology: none sent Condition: stable Disposition: PACU Description of Procedure: PROCEDURE: The patient was placed on the endoscopy table in the lateral position. Digital rectal examination was performed which revealed no abnormalities. The prostate was symmetrical without nodules. Flexible colonoscope was then placed in the patient's anus and passed throughout the entire colon. The ileocecal valve was visualized. The cecum, ascending, transverse, descending and sigmoid colon were normal. The rectum was normal as well. There were no masses, polyps or diverticula noted in the entire colon. SUMMARY OF FINDINGS: Normal colonoscopy.
[2022-02-10 09:25] VITALS: BP 128/85; PULSE 60
== END 2022-02-10 09:50 | disposition home or self-care (01) ==
LOC: ORWHC2ENDO 07:47
PROVIDERS: ATTEND Surgery
DX: Z12.11 Encounter for screening for malignant neoplasm of colon (principal); E78.5 Hyperlipidemia, unspecified; F17.200 Nicotine dependence, unspecified, uncomplicated; Z79.02 Long term (current) use of antithrombotics/antiplatelets; Z87.442 Personal history of urinary calculi; Z87.81 Personal history of (healed) traumatic fracture; Z80.1 Family history of malignant neoplasm of trachea, bronchus and lung
CPT/HCPCS: 45378; J2704